=== PATIENT | male | born 1985 | race African-American/Black ===

== ENCOUNTER 2019-08-14 17:58 | Inpatient (IN) ==
[2019-08-14] MEDS ORDERED: TYLENOL PO ONE (18:36)
[2019-08-14] MEDS ORDERED: ZOFRAN IV ONE (18:36)
[2019-08-14] MEDS ORDERED: CLINDAMYCIN 600 MG/NS 600 MG/50 ML IVPB IV ONE (18:36)
[2019-08-14] MEDS ORDERED: MORPHINE IV ONE ×2 (18:36→20:48)
[2019-08-14] MEDS ORDERED: NS 500 ML IV ONE (18:36)
[2019-08-14] MEDS ORDERED: NS 1,000 ML IV ONE (18:38)
--- NOTE | 2019-08-14 18:40 | PROVIDER DOCUMENTATION ---
HPI-Rash/Wound/ReCheck - General Chief Complaint: Abscess Stated Complaint: ABSCESS Time Seen by Provider: 08/14/19 18:23 Source: patient Allergies/Adverse Reactions: Allergies Allergy/AdvReac Type Severity Reaction Status Date / Time No Known Allergies Allergy Verified 05/19/19 22:46 Home Medications: Home Medication List Medication Instructions Recorded Confirmed Last Taken Type Albuterol Sulfate [Proair Hfa] 8.5 gm INHALATION Q6HR PRN #1 09/19/18 03/13/19 03/13/19 Rx [email or web address] Dulaglutide [Trulicity] 1 dose SQ DIRECTED 03/13/19 03/13/19 03/13/19 History Fluticasone/Vilanterol [Breo 1 ea INH DIRECTED 03/13/19 03/13/19 03/13/19 History Ellipta 100-25 Mcg INH] Naproxen 500 mg PO BID PRN PRN #30 tab 05/20/19 Unknown Rx - History of Present Illness-Dermatology Nature of Presenting Problem: Patient is a 34 yom who presents with cellulitis to left buttocks x 4 days. States he developed fever 2 days ago. Hx of NIDDM. Was placed on Amoxicillin by urgent care. Denies any other complaints. Review of Systems - Adult - REVIEW OF SYSTEMS - ADULT Constitutional: reports: see HPI, fever Eyes: reports: no symptoms reported Ears, Nose, Mouth & Throat: reports: no symptoms reported Cardiovascular: reports: no symptoms reported Respiratory: reports: no symptoms reported Gastrointestinal: reports: no symptoms reported Genitourinary: reports: no symptoms reported Musculoskeletal: reports: no symptoms reported Integumentary: reports: see HPI Neurological: reports: no symptoms reported Psychiatric: reports: no symptoms reported Endocrine: reports: no symptoms reported Hematologic/Lymphatic: reports: no symptoms reported Allergic/Immunologic: reports: no symptoms reported All Other Systems: Reviewed and Negative Past History - Adult - PAST MEDICAL HISTORY-ADULT Review of Records: reports: Old Records Reviewed, Nursing Assessment Review, Medications Reviewed, Social history reviewed & non-contributory. Major Childhood Illnesses: reports: denies history Cardiovascular: reports: hyperlipidemia Respiratory: reports: asthma Gastrointestinal: reports: denies history Obstetrical/Gynecological: reports: denies history Genitourinary: reports: denies history Musculoskeletal: reports: denies history Neurological: reports: denies history Endocrine/Immune: reports: Diabetes Diabetes Type: Type 2 Other Conditions: reports: denies history - PRIOR SURGERIES/PROCEDURES Surgical/Procedure History: reports: none - IMMUNIZATION STATUS Childhood Immunizations: See Nurse Assessment Flu Vaccine: See Nurse Assessment - FAMILY HISTORY Family History: reviewed, not pertinent - SOCIAL HISTORY Smoking: non-smoker Physical Exam-General - PHYSICAL EXAM-ADULT Initial Vital Signs Reviewed: Yes - CONSTITUTIONAL General Appearance: alert, no apparent distress. negative: lethargic, slow to respond - EYES Eyes: PERRL/EOMI - HEAD, EARS, NOSE, MOUTH & THROAT HENMT: normocephalic/atraumatic - NECK Neck: full range of motion, supple, normal inspection - RESPIRATORY Respiratory: chest non-tender, lungs clear, normal breath sounds, no pleuratic chest pain, no respiratory distress, no accessory muscle use - CARDIOVASCULAR Cardiovascular: normal peripheral pulses, regular rate, rhythm, no gallop, no murmur, tachycardia - GENITOURINARY Rectal Exam: normal exam, other (large tender indurated region noted to left buttocks, perirectal region non-tender and non-indurated). negative: tenderness - MUSCULOSKELETAL Extremity: normal range of motion, non-tender, normal gait, normal inspection - SKIN Integumentary: normal color, warm/dry, other (see note under ). negative: cyanosis, diaphoresis, jaundice, mottled, pallor - NEUROLOGIC Neurologic: grossly normal, no motor/sensory deficits - PSYCHIATRIC Psych/Mental Status: normal mood/affect, normal thought content, normal thought process, oriented x 3 Progress - PLAN OF CARE/RESULTS Progress/Plan/Lab Results: Vital Signs - 8 hr 08/14/19 18:14 Temperature 102.6 F H Pulse Rate 123 H Respiratory Rate 18 Blood Pressure 113/70 O2 Sat by Pulse Oximetry 98 Laboratory Results - last 24 hr 08/14/19 08/14/19 08/14/19 19:15 19:15 19:15 WBC 16.90 H RBC 5.12 Hgb 14.9 Hct 43.7 MCV 85.4 MCH 29.1 MCHC 34.1 RDW Std Deviation 12.4 Plt Count 325 MPV 9.6 Immature Gran % (Auto) 0.5 Neut % (Auto) 80.9 H Lymph % (Auto) 7.3 L [place] % (Auto) 11.1 H Eos % (Auto) 0.1 Baso % (Auto) 0.1 Immature Gran # (Auto) 0.08 H Neut # (Auto) 13.70 H Lymph # (Auto) 1.23 [place] # (Auto) 1.87 H Eos # (Auto) 0.01 Baso # (Auto) 0.01 Sodium 133 L Potassium 4.6 Chloride 93 L Carbon Dioxide 23 L Anion Gap 17 BUN 14 Creatinine 1.0 Estimated GFR/1.73 m2 > 60 BUN/Creatinine Ratio 14 Glucose 331 H Calculated Osmolality 280 Calcium 9.6 Total Bilirubin 0.63 AST 9 L ALT 11 Alkaline Phosphatase 92 Total Protein 6.8 Albumin 3.8 Globulin 3.0 Albumin/Globulin Ratio 1.3 Plasma Lactate 1.4 Orders Category Date Time Status NEWS Score 2-4:Order NEWS Lactate Series NOW Care 08/14/19 18:16 Active BLOOD CULTURE [BLDCUL] Stat Lab 08/14/19 19:15 Results CBC WITH DIFF [HEME] Stat Lab 08/14/19 19:15 Completed COMPREHENSIVE METABOLIC PANEL [CHEM] Stat Lab 08/14/19 19:15 Completed LACTATE, PLASMA [CHEM] Lab 08/14/19 19:15 Completed LACTATE, PLASMA [CHEM] Lab 08/14/19 21:30 Uncollected LACTATE, PLASMA [CHEM] Lab 08/15/19 00:30 Uncollected 0.9% Sodium Chloride Inj [Ns] 1,000 ml Med 08/14/19 18:38 Discontinued IV 999 mls/hr 0.9% Sodium Chloride Inj [Ns] 500 ml Med 08/14/19 18:36 Discontinued IV 999 mls/hr Acetaminophen [Tylenol] Med 08/14/19 18:36 Discontinued 650 mg PO NOW ONE Clindamycin 600 mg/D5w Med 08/14/19 19:00 Discontinued 600 mg in 50 ml IV NOW Clindamycin 600 mg/Ns Med 08/14/19 18:36 Discontinued 600 mg in 50 ml IV NOW Insulin Human Regular [Humulin R] Med 08/14/19 20:47 Discontinued 8 unit IV NOW ONE Morphine Med 08/14/19 18:36 Discontinued 4 mg IV NOW ONE Morphine Med 08/14/19 20:48 Discontinued 4 mg IV NOW ONE Ondansetron [Zofran] Med 08/14/19 18:36 Discontinued 4 mg IV NOW ONE Result Diagrams: 08/14/19 19:15 08/14/19 19:15 - REASSESSMENT Reassessment #1 Time Reassessed: 20:51 Status: improving (Pain medicine effective, pt states it is wearing off and requests more. Pt in agreement with plan to admit.) - CONSULTS/PCP/HOSPITALIST Notification #1 *Consult/PCP/Hospitalist*: Dr. Thorpe Time Discussed: 20:51 Reason/Comments: admission- cellulitis Consult Disposition: Will see in ED, Admit Departure - Departure Date of Disposition Decision: 08/14/19 Time of Disposition Decision: 20:51 DIAGNOSIS: Cellulitis Qualifiers: Site of cellulitis: buttock Qualified Code(s): L03.317 - Cellulitis of buttock Disposition: ADMITTED INPATIENT 09 Certified Medical Emergency: Emergent Condition: Stable Referrals and Follow-Ups: Chris Garcia MD [Primary Care Provider] - - Critical Care Note This patient required my direct & personal management of CC.: No Attestation - Physician/ KEYON Attestation Patient care was provided by Advanced Practice Provider:: Yes Advanced Practice Provider:: Patricia Robertson Advanced Practice Provider documentation review:: The Mid-level provider documentation, treatment plan and medical decision making was reviewed by the physician who agrees with all treatment and medical decision making by the MLP. The physician spent face to face time with patient:: No Advanced Practice Provider documentation review:: Supervising physician onsite and consulted in the evaluation and care of this patient. The physician did not have a face to face encounter with the patient.
[2019-08-14] MEDS ORDERED: CLINDAMYCIN 600 MG/D5W 600 MG/50 ML IVPB IV ONE (19:00)
[2019-08-14 20:19] LABS: BASO# 0.01 X1000 (0.0-0.2); BASO% 0.1 % (0.0-0.8); EOS# 0.01 X1000 (0.0-0.7); EOS% 0.1 % (0.0-10.0); HEMATOCRIT 43.7 % (42.0-52.0); HEMOGLOBIN 14.9 g/dL (14.0-18.0); IMM GRAN# 0.08 X1000 (0.0-0.04); IMM GRAN% 0.5 % (0.0-0.5); LYMPH# 1.23 X1000 (1.2-3.4); LYMPH% 7.3 % (20.5-51.1); MCH 29.1 PG (27-31); MCHC 34.1 g/dL (33-37); MCV 85.4 FL (81-99); MONO# 1.87 X1000 (0.11-0.59); MONO% 11.1 % (1.7-9.3); MPV 9.6 FL (7.4-10.4); NEUT% 80.9 % (42.2-75.2); PLT 325 X1000 (130-400); RBC 5.12 XMIL (4.7-6.1); RDW 12.4 % (11.5-14.5)
[2019-08-14 20:40] LABS: AGAP 17; ALB/GLOB RATIO 1.3; ALBUMIN 3.8 g/dL (3.5-5.0); ALKALINE PHOSPHATASE 92 U/L (32-122); BUN 14 mg/dL (8-22); CALCIUM 9.6 mg/dL (8.8-10.2); CHLORIDE 93 mmol/L (98-107); COSMO 280; ESTIMATED GFR > 60; GLUCOSE 331 mg/dL (70-104); GOT 9 U/L (10-34); GPT 11 U/L (10-44); POTASSIUM 4.6 mmol/L (3.5-5.1); SODIUM 133 mmol/L (136-145); TCO2 23 mmol/L (25-35); TOTAL BILIRUBIN 0.63 mg/dL (0.20-1.00); TOTAL PROTEIN 6.8 g/dL (6.3-8.3)
[2019-08-14] MEDS ORDERED: HUMULIN R IV ONE (20:47)
[2019-08-14] MEDS ORDERED: VENTOLIN HFA INH PRN (21:51)
[2019-08-14] MEDS ORDERED: BREO ELLIPTA 100/25 MCG INH INH SCH (22:00)
[2019-08-14] MEDS ORDERED: VANCOMYCIN IV PER PHARMACY MISC SCH (22:00)
[2019-08-14] MEDS ORDERED: ROCEPHIN 1 GM in NS 50 ML IV SCH (22:00)
[2019-08-14 22:07] LABS: HEMOGLOBIN A1C 11.1 % (4.8-6.0)
[2019-08-14] MEDS ORDERED: ZOFRAN IV PRN (22:55)
[2019-08-14] MEDS ORDERED: NS 1,000 ML IV SCH (22:55)
[2019-08-14] MEDS ORDERED: VANCOMYCIN 2,000 MG in NS 500 ML IV ONE (23:00)
[2019-08-14] MEDS: DILAUDID IV PRN (23:15)
[2019-08-15] MEDS: HUMALOG SUBQ SCH ×3 (00:15→06:17)
[2019-08-15 01:42] LABS: CHOLESTEROL 287 mg/dL (0-200); HDL 40 mg/dL (35-55); LDL 226 mg/dL; TRIGLYCERIDES 107 mg/dL (39-160); VLDL 21 mg/dL
[2019-08-15] MEDS: DILAUDID IV PRN ×5 (02:57→19:20)
--- NOTE | 2019-08-15 05:41 | HISTORY AND PHYSICAL ---
CHIEF COMPLAINT: Abscess. HPI: This is a 34-year-old male with a right buttocks abscess x4 days. Started developing a fever 2 days ago. Was placed on amoxicillin by the Urgent Care, but has had increasing pain that was not relieved with ibuprofen. He has a past medical history of previous abscesses, diabetes mellitus, and hyperlipidemia, but says that he has not taken a cholesterol pill in several years. The abscess has grown in size. There is no fluctuance noted. It is indurated with erythema around it. Appears to be more cellulitis than abscess at this point. He will be admitted for further evaluation and treatment. PAST MEDICAL HISTORY: See HPI. PREVIOUS SURGICAL HISTORY: Denies. 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 Smokes 2 cigars a day. Smoking cessation was gone over with the patient, and he does not want to stop at this time. Occasional alcohol. No illicit drugs. FAMILY HISTORY: Mother has diabetes mellitus. ALLERGIES: NO KNOWN DRUG ALLERGIES. HOME MEDICATIONS: 1. Trulicity 1 dose daily as directed. 2. Metformin 500 mg daily. REVIEW OF SYSTEMS: A 14 point review of systems was conducted with the patient. Pertinent positives listed above in the HPI. All other systems reviewed and found to be negative. PHYSICAL EXAMINATION: VITAL SIGNS: Temperature 99.8, pulse 111, respirations 20, blood pressure 123/63, oxygen saturation 98% on room air. GENERAL: Pleasant 34-year-old male, lying on the ER stretcher. He is alert and oriented x3, in no acute distress. HEENT: Head is atraumatic, normocephalic. Pupils are equal, round, react to light. Extraocular eye movements intact. Sclera anicteric. Conjunctiva pink. Oral mucosa is moist. NECK: Supple. No JVD. No thyromegaly. Trachea is midline. No cervical lymphadenopathy. CARDIAC: S1, S2 appreciated. No murmurs, gallops or rubs. LUNGS: Clear to auscultation bilaterally. No rhonchi, wheeze or rales. Symmetric rise and fall of respirations. ABDOMEN: Soft, nondistended, nontender. Bowel sounds present all 4 quadrants, normoactive. No pulsatile mass or organomegaly. EXTREMITIES: No clubbing, cyanosis or edema, 2+ pedal pulses bilaterally. GENITOURINARY: No bladder distention. Patient voids. INTEGUMENTARY: Warm, dry and intact. Large area of induration on patient's right buttock surrounded with erythema. No fluctuance. NEUROLOGICAL: Alert and oriented x3. No focal motor deficits. Otherwise nonfocal examination. MUSCULOSKELETAL: All 4 extremities within normal limits, 5/5 strength upper and lower extremities equal bilaterally. LABORATORY DATA: WBC 16.90, hemoglobin 14.9, hematocrit 43.7, platelet count 325,000. Sodium 133, potassium 4.6, chloride 93, carbon dioxide 23, BUN 14, creatinine 1, glucose 331. ASSESSMENT: 1. Right buttocks cellulitis. 2. Tobacco use. 3. Diabetes mellitus with hyperglycemia. 4. History of hyperlipidemia, currently not treated, PLAN: Admit patient to the medical floor. Will give him Rocephin and vancomycin, morphine as needed for pain. Will give normal saline for hydration, fingerstick blood sugars q.4h. with sliding scale insulin. Check hemoglobin A1c. Check a lipid profile. Further recommendations per patient clinical course. Dictated by SHWETA Wade for Mario Woody MD cc: SHWETA Wade MD
[2019-08-15] MEDS: TYLENOL PO PRN ×2 (06:54→16:00)
[2019-08-15] MEDS ORDERED: ZOSYN 3.375 GM in NS 50 ML IV SCH (07:00)
[2019-08-15 07:24] LABS: BASO# 0.02 X1000 (0.0-0.2); BASO% 0.1 % (0.0-0.8); EOS# 0.02 X1000 (0.0-0.7); EOS% 0.1 % (0.0-10.0); HEMATOCRIT 39.9 % (42.0-52.0); HEMOGLOBIN 13.3 g/dL (14.0-18.0); IMM GRAN# 0.08 X1000 (0.0-0.04); IMM GRAN% 0.5 % (0.0-0.5); LYMPH# 1.95 X1000 (1.2-3.4); LYMPH% 11.4 % (20.5-51.1); MCH 28.9 PG (27-31); MCHC 33.3 g/dL (33-37); MCV 86.6 FL (81-99); MONO# 1.98 X1000 (0.11-0.59); MONO% 11.5 % (1.7-9.3); MPV 9.2 FL (7.4-10.4); NEUT# 13.13 X1000 (1.4-6.5); NEUT% 76.4 % (42.2-75.2); PLT 310 X1000 (130-400); RBC 4.61 XMIL (4.7-6.1); RDW 12.3 % (11.5-14.5); WBC 17.18 X1000 (4.8-10.8)
[2019-08-15 07:58] LABS: AGAP 12; BUN 9 mg/dL (8-22); CHLORIDE 93 mmol/L (98-107); COSMO 263; CREATININE 0.9 mg/dL (0.7-1.2); ESTIMATED GFR > 60; GLUCOSE 270 mg/dL (70-104); POTASSIUM 3.9 mmol/L (3.5-5.1); SODIUM 127 mmol/L (136-145); TCO2 22 mmol/L (25-35)
[2019-08-15] MEDS ORDERED: INSULIN PEN NEEDLES ONE (08:12)
[2019-08-15] MEDS: LEVEMIR SUBQ SCH (10:15)
[2019-08-15] MEDS: VANCOMYCIN 2,000 MG in NS 500 ML IV SCH ×2 (10:24→23:29)
[2019-08-15] MEDS ORDERED: NS 1,000 ML IV SCH (11:23)
--- NOTE | 2019-08-15 14:51 | GENERAL SURGERY CONSULTATION ---
DATE: 08/15/2019 REQUESTING PROVIDER: Hospitalist. REASON FOR CONSULTATION: Consult regarding right gluteal cellulitis versus abscess. HISTORY OF PRESENT ILLNESS: A 34-year-old, -[place] male who developed pain in his right buttocks for 4 days and started running a fever. He was initially getting oxacillin by emergent care but it did not get any better so he came over here. He has been admitted by the hospitalist and started on IV antibiotics. I was asked to weigh an opinion. The patient is reporting pain in the area but no active drainage. PAST MEDICAL HISTORY: Includes diabetes mellitus, hyperlipidemia, previous abscess. PAST SURGICAL HISTORY: None. SOCIAL HISTORY: Current smoker. FAMILY HISTORY: Positive for diabetes. ALLERGIES: None. HOME MEDICATIONS: Trulicity and metformin. REVIEW OF SYSTEMS: A full 14 systems were reviewed and negative except as specified in the HPI. PHYSICAL EXAMINATION: Vital Signs: Patient is currently with a temperature of 101.2 degrees, pulse 114, blood pressure 128/73. General Examination: No acute distress. Resting comfortably. -[place]ian male, looks stated age. HEENT: Normocephalic, atraumatic. Pupils equal, round, reactive to light. Mucous membranes moist. Oropharynx benign. Neck: Supple. Trachea midline. Cardiovascular: Regular rate and rhythm. Lungs: Grossly clear. Abdomen: Soft, nontender, nondistended. Extremities: Moves all extremities. Neurologic: Grossly intact. Skin: In the right gluteal area, there is an area of induration. Limited exam secondary to tenderness. I did not feel any actual fluctuance but it is a difficult exam. Some warmth to the touch. No active drainage. Vascular: All extremities perfused. Neurologic: Grossly intact. LABORATORY DATA: White blood count 17, hematocrit 39, platelet count 310,000. Sodium is 127, chloride is 93, bicarb is 22, creatinine 0.9. Remainder of labs reviewed. CT scan currently pending. ASSESSMENT AND PLAN: A 34-year-old gentleman with right gluteal cellulitis. Cellulitis. At this time, I agree with CT scan. His exam is somewhat difficult. It feels mostly indurated but given the fact that he has a tachycardia and a significant leukocytosis, and a fever, I agree with getting a CT scan to make sure there is not a deeper abscess that is difficult to feel on clinical examination. I agree with the antibiotics. We will follow up the CT scan and make further recommendations. cc: Francis Gao MD MTDD
--- NOTE | 2019-08-15 15:52 | Diag Imaging Result Doc PS360 ---
EXAM: CT ABD/PELVIS W/IV CONT ONLY INDICATION: gluteal abscess TECHNIQUE: This exam was performed using automated exposure control, adjustment of mA or kV according to patient size, and/or use of iterative reconstruction technique. Note that the patient was scanned in a prone position as he was unable to lie supine due to pain. COMPARISON: None. FINDINGS: The liver, gallbladder, spleen, pancreas, adrenal glands, kidneys, and urinary bladder are essentially unremarkable. The appendix is normal. There is no evidence of focal bowel wall thickening or bowel obstruction. The remainder of the GI tract is unremarkable. There is a complex fluid collection containing internal gas in the subcutaneous fat overlying the gluteal musculature predominantly on the right but it also extends slightly to the left of the gluteal cleft. There is suggestion of subtle enhancement at its periphery. As of yet, it is poorly defined. This is consistent with an early abscess. It measures approximately 5.7 x 3.9 cm axially and up to 8.9 cm craniocaudally. There is extensive soft tissue edema in the gluteal fat on the right surrounding the collection indicating cellulitis. In the left gluteal region on image 206 of series 3, there is a small 1.3 cm hypodense nodule in the superficial soft tissues abutting the skin surface measuring 1.3 cm most compatible with a sebaceous cyst. No intrapelvic abscess is appreciated. IMPRESSION: Early gluteal abscess with surrounding cellulitis mainly on the right as detailed above. Electronically signed by Mika Rosa 08/15/2019 3:50 PM
[2019-08-15] MEDS: HUMULIN R SUBQ SCH ×3 (16:41→21:35)
[2019-08-15] MEDS: NS 1,000 ML IV SCH (16:42)
--- NOTE | 2019-08-15 16:52 | PROGRESS NOTE ---
DATE: 08/15/2019 SUBJECTIVE: The patient has been febrile all day. He complains of pain on his right buttock. OBJECTIVE: T-max 102.8 degrees, blood pressure 113/63, heart rate 119 respirations 18, O2 saturation 95% on room air.General: This is a young male lying in bed in no acute distress. Heart: S1, S2 normal. Tachycardic. Lungs: Equal air entry bilaterally no wheezing no rales. Abdomen: Positive bowel sounds. Soft, nontender, nondistended. Extremities: No edema, no cyanosis. Buttocks: There is an indurated large swelling on the right buttock, warm to touch. No discharge noted. Neurologic: The patient is alert and oriented x3. LABS: White blood cell count 17, hemoglobin 13, hematocrit 39, platelets 310,000. Sodium 127, potassium 3.9, chloride 93, CO2 22, BUN 9, creatinine 0.9, glucose 225, calcium 9. ASSESSMENT AND PLAN: 1. Sepsis likely secondary to right buttock cellulitis with possible abscess. General Surgery has seen the patient. We are waiting on the results of the CT of the abdomen and pelvis. In the meantime the patient is on IV fluids and broad-spectrum antibiotics. We will continue to monitor closely for improvement. 2. Right buttock cellulitis with possible abscess. Continue with broad-spectrum antibiotics. General Surgery has seen the patient. We will await further recommendations after the imaging is available for review. 3. Uncontrolled insulin-dependent diabetes mellitus. The patient has been started on Levemir 30 units subcutaneous daily plus sliding scale insulin. 4. Deep vein thrombosis prophylaxis. The patient will be started on Lovenox. cc: Sulma Posadas MD
[2019-08-15] MEDS ORDERED: LANTUS INSULIN SUBQ SCH (21:00)
[2019-08-15] MEDS: MERREM 1 GM in NS 50 ML IV SCH (21:35)
[2019-08-15] MEDS: LOVENOX SUBQ SCH (21:35)
[2019-08-15] MEDS: NORCO-7.5 PO PRN (21:35)
[2019-08-16] MEDS: DILAUDID IV PRN ×6 (01:22→22:19)
[2019-08-16] MEDS: HUMULIN R SUBQ SCH ×6 (01:23→21:44)
[2019-08-16] MEDS: NS 1,000 ML IV SCH ×4 (04:42→16:07)
[2019-08-16] MEDS: MERREM 1 GM in NS 50 ML IV SCH ×3 (04:43→21:42)
[2019-08-16] MEDS: TYLENOL PO PRN (05:19)
[2019-08-16 06:43] LABS: INR 1.2; PROTIME 15.4 Seconds (11.0-16.0)
[2019-08-16 06:44] LABS: PTT 34.8 Seconds (22.3-41.8)
[2019-08-16] MEDS: PRILOSEC PO SCH ×2 (06:54→16:00)
--- NOTE | 2019-08-16 07:04 | Diag Imaging Result Doc PS360 ---
EXAM: CHEST-1 VIEW HISTORY: NEWS bundle TECHNIQUE: Single view COMPARISON: 05/19/2019 FINDINGS: The lungs are well expanded. The heart is not enlarged. The vessels are not distended. There are no infiltrates. No effusion identified. IMPRESSION: Negative exam. Electronically signed by Bari Borges 08/16/2019 7:02 AM
[2019-08-16 07:42] LABS: ALB/GLOB RATIO 1.1; ALBUMIN 2.9 g/dL (3.5-5.0); ALKALINE PHOSPHATASE 86 U/L (32-122); BUN 7 mg/dL (8-22); CALCIUM 8.5 mg/dL (8.8-10.2); CREATININE 0.9 mg/dL (0.7-1.2); ESTIMATED GFR > 60; GLUCOSE 184 mg/dL (70-104); GOT 17 U/L (10-34); GPT 15 U/L (10-44); TCO2 20 mmol/L (25-35); TOTAL BILIRUBIN 0.94 mg/dL (0.20-1.00); TOTAL PROTEIN 5.5 g/dL (6.3-8.3)
[2019-08-16 07:43] LABS: CK PROFILE 426 U/L (24-204)
[2019-08-16] MEDS ORDERED: DIPRIVAN 1% ONE (07:44)
[2019-08-16] MEDS ORDERED: XYLOCAINE-MPF 2% ONE (07:44)
[2019-08-16] MEDS ORDERED: VERSED ONE (07:47)
[2019-08-16 07:55] LABS: AGAP 12; BUN 7 mg/dL (8-22); CALCIUM 8.7 mg/dL (8.8-10.2); CHLORIDE 99 mmol/L (98-107); COSMO 271; CREATININE 0.9 mg/dL (0.7-1.2); ESTIMATED GFR > 60; GLUCOSE 187 mg/dL (70-104); POTASSIUM 3.4 mmol/L (3.5-5.1); SODIUM 134 mmol/L (136-145); TCO2 23 mmol/L (25-35)
[2019-08-16 08:01] LABS: CHLORIDE 99 mmol/L (98-107); POTASSIUM 3.6 mmol/L (3.5-5.1); SODIUM 134 mmol/L (136-145)
[2019-08-16 08:03] LABS: CK INDEX 0.4 (0.0-2.5)
[2019-08-16 08:09] LABS: AGAP 15
[2019-08-16] MEDS ORDERED: FENTANYL ONE (08:09)
[2019-08-16 08:11] LABS: COSMO 271
[2019-08-16] MEDS ORDERED: ZOFRAN ONE (08:21)
[2019-08-16] MEDS: DILAUDID ONE ×2 (08:54→09:00)
[2019-08-16 08:58] LABS: HEMATOCRIT 37.7 % (42.0-52.0); HEMOGLOBIN 12.7 g/dL (14.0-18.0); LYMPH% 10.4 % (20.5-51.1); MCH 29.3 PG (27-31); MCHC 33.7 g/dL (33-37); MCV 86.9 FL (81-99); MPV 9.6 FL (7.4-10.4); NEUT% 73.7 % (42.2-75.2); PLT 305 X1000 (130-400); RBC 4.34 XMIL (4.7-6.1); RDW 12.4 % (11.5-14.5); WBC 20.63 X1000 (4.8-10.8)
[2019-08-16 08:59] LABS: BASO# 0.03 X1000 (0.0-0.2); BASO% 0.1 % (0.0-0.8); EOS# 0.02 X1000 (0.0-0.7); EOS% 0.1 % (0.0-10.0); IMM GRAN% 0.5 % (0.0-0.5); LYMPH# 2.15 X1000 (1.2-3.4); MONO# 3.13 X1000 (0.11-0.59); MONO% 15.2 % (1.7-9.3)
--- NOTE | 2019-08-16 10:12 | GENERAL SURGERY PROGRESS NOTE ---
DATE: 08/16/2019 SUBJECTIVE: Patient is doing okay. OBJECTIVE: Vital Signs: Patient is tachycardic to the 110s and temperature is 102.8 degrees. Remainder of vital signs stable. General: In no acute distress. Resting comfortably. Cardiovascular: Regular rate and rhythm. Lungs: Grossly clear. Abdomen: Soft, nontender. Gluteal area essentially unchanged. ASSESSMENT AND PLAN: A 34-year-old male with gluteal abscess. PLAN: Gluteal abscess. At this time I suspect this is the reason behind his tachycardia and his fever. The CT scan showed an abscess. Discussed with him the risks, benefits, and alternatives of drainage, risks including, but not limited to, bleeding, damage to other structures. We will plan on drainage today in the operating room. cc: Francis Gao MD
[2019-08-16] MEDS: LEVEMIR SUBQ SCH ×2 (12:04→14:01)
[2019-08-16] MEDS: VANCOMYCIN 2,000 MG in NS 500 ML IV SCH (14:00)
[2019-08-16] MEDS: NORCO-7.5 PO PRN ×2 (14:48→21:43)
--- NOTE | 2019-08-16 15:31 | OPERATIVE NOTE ---
PROCEDURE DATE: 08/16/2019 PREOP DIAGNOSIS: Gluteal abscess. POSTOP DIAGNOSIS: Gluteal abscess. PROCEDURE: Incision and drainage of gluteal abscess. SURGEON: Francis Gao MD. CLINICAL ALLERGIST: None. ANESTHESIA: General endotracheal. OPERATIVE FINDINGS: Significant amount purulence encountered which sent for culture. COMPLICATIONS: None at the time this dictation. ESTIMATED BLOOD LOSS: 10 mL. SPECIMEN REMOVED: Culture. BRIEF HISTORY: 34-year-old gentleman with gluteal cellulitis. CT scan confirmed an abscess, felt he would benefit from drainage. He is also tachycardic and febrile, felt that he needed to have this drained the operating room. The risks, benefits, alternatives were discussed. All questions answered. DESCRIPTION OF PROCEDURE: After informed consent was obtained patient brought to the operative theatre, transferred operating table supine position. General endotracheal anesthesia was then performed without complication. A formal time-out was then performed confirming patient, date, procedure, all in agreement. That time attention to the patient's perineum gluteal area, he was placed in candy canes, gluteal area was prepped and draped, while we were prepping it started to spontaneously start to drain. We prepped and draped this area in a sterile fashion. After the time-out we made a cruciate incision over the area that was draining, encountered significant amount of purulence which was drained. We then cultured it. We then irrigated out the wound with both normal saline and Vashe. We then placed packing into the wound with a Kerlix roll that was soaked in Vashe and placed a sterile dressing. The patient tolerated procedure well, was transferred back to recovery room. cc: Francis Gao MD
[2019-08-16 15:49] LABS: URINE SOURCE CLEAN CATCH
[2019-08-16 15:53] LABS: BILIRUBIN URINE NEGATIVE (NEGATIVE); BLOOD URINE NEGATIVE (NEGATIVE); COLOR YELLOW; GLUCOSE URINE 300 mg/dL (NEGATIVE); KETONE URINE 20 mg/dL (NEGATIVE); LEUKOCYTES URINE NEGATIVE (NEGATIVE); NITRITE URINE NEGATIVE (NEGATIVE); PROTEIN URINE TRACE mg/dL (NEGATIVE); SP GRAVITY URINE 1.021; TURBIDITY URINE CLEAR (CLEAR); UROBILINOGEN URINE 3 mg/dL (NORMAL)
[2019-08-16 16:24] LABS: UR EPITHELIAL CELLS <10 /HPF (<10); URINE BACTERIA NEGATIVE /HPF; URINE RBC <10 /HPF (<10); URINE WBC <10 /HPF (<10)
[2019-08-16 16:38] LABS: URINE CASTS GRANULAR PRESENT; URINE CRYSTALS NONE SEEN; URINE YEAST NONE SEEN
--- NOTE | 2019-08-16 20:41 | PROGRESS NOTE ---
DATE: 08/16/2019 SUBJECTIVE: The patient is resting comfortably. He had surgery earlier today. OBJECTIVE: Vital Signs: Temperature 98.4 degrees, blood pressure 114/69, heart rate 114, respirations 18, O2 saturations 98% on room air. General: This is a young male lying in bed in no acute distress. Heart: S1, S2 normal. Tachycardic. Lungs: Clear to auscultation bilaterally. Abdomen: Positive bowel sounds. Soft, nontender, nondistended. Extremities: No edema, no cyanosis. No calf tenderness. Neuro: The patient is alert and oriented x3. LABS: White blood cell count 20, hemoglobin 12, hematocrit 37, platelets 305,000. Sodium 134, potassium 3.6, chloride 99, CO2 20, BUN 7, creatinine 0.9, glucose 184. ASSESSMENT AND PLAN: 1. Sepsis secondary to gluteal abscess status post incision and drainage. Will continue with broad-spectrum antibiotics. Cultures are currently pending. Management as per the general surgeon. 2. Poorly controlled insulin-dependent diabetes mellitus. We will continue on the current insulin regimen. 3. Gastrointestinal prophylaxis. Continue on Prilosec. 4. Deep vein thrombosis prophylaxis. Continue on Lovenox. cc: Sulma Posadas MD
[2019-08-16] MEDS: PERIDEX MT SCH (21:43)
[2019-08-16] MEDS: LOVENOX SUBQ SCH ×2 (21:44→21:46)
[2019-08-17] MEDS: VANCOMYCIN 2,000 MG in NS 500 ML IV SCH ×3 (01:03→22:21)
[2019-08-17] MEDS: NS 1,000 ML IV SCH (01:04)
[2019-08-17] MEDS: HUMULIN R SUBQ SCH ×6 (01:05→22:22)
[2019-08-17] MEDS: PRILOSEC PO SCH ×2 (05:01→06:19)
[2019-08-17] MEDS: MERREM 1 GM in NS 50 ML IV SCH ×3 (05:01→16:57)
[2019-08-17] MEDS: NORCO-7.5 PO PRN ×3 (05:02→15:49)
[2019-08-17 07:21] LABS: BASO# 0.02 X1000 (0.0-0.2); BASO% 0.1 % (0.0-0.8); EOS% 0.6 % (0.0-10.0); HEMATOCRIT 35.1 % (42.0-52.0); HEMOGLOBIN 11.8 g/dL (14.0-18.0); IMM GRAN# 0.14 X1000 (0.0-0.04); IMM GRAN% 0.8 % (0.0-0.5); LYMPH# 1.41 X1000 (1.2-3.4); MCH 29.3 PG (27-31); MCHC 33.6 g/dL (33-37); MCV 87.1 FL (81-99); MONO# 1.69 X1000 (0.11-0.59); MONO% 9.6 % (1.7-9.3); MPV 8.7 FL (7.4-10.4); NEUT# 14.22 X1000 (1.4-6.5); NEUT% 80.9 % (42.2-75.2); PLT 306 X1000 (130-400); RBC 4.03 XMIL (4.7-6.1); RDW 12.7 % (11.5-14.5); WBC 17.58 X1000 (4.8-10.8)
[2019-08-17 07:38] LABS: AGAP 13; BUN 8 mg/dL (8-22); CALCIUM 8.6 mg/dL (8.8-10.2); CHLORIDE 98 mmol/L (98-107); COSMO 272; CREATININE 0.8 mg/dL (0.7-1.2); ESTIMATED GFR > 60; GLUCOSE 203 mg/dL (70-104); POTASSIUM 3.7 mmol/L (3.5-5.1); SODIUM 134 mmol/L (136-145); TCO2 23 mmol/L (25-35)
[2019-08-17] MEDS: PERIDEX MT SCH ×2 (08:33→22:20)
[2019-08-17] MEDS: DILAUDID IV PRN ×3 (08:33→16:56)
[2019-08-17] MEDS: LEVEMIR SUBQ SCH ×2 (08:34→22:21)
--- NOTE | 2019-08-17 12:44 | GENERAL SURGERY PROGRESS NOTE ---
DATE: 08/17/2019 Postoperative day 1 after drainage of a perirectal abscess. He is afebrile today. He says he feels better [place] [id number]. Today, we removed his packing. He continues on Merrem and vancomycin. cc: Aayush Puentes MD
--- NOTE | 2019-08-17 14:46 | PROGRESS NOTE ---
DATE: 08/17/2019 SUBJECTIVE: The patient is feeling much better. No acute events overnight. He has been afebrile. OBJECTIVE: Vital Signs: Temperature 98.1 degrees, blood pressure 115/63, heart rate 82, respirations 18, O2 saturation 97% on room air. General: This is a young male lying in bed in no acute distress. Heart: S1, S2 normal. Regular rate and rhythm. Lungs: Equal air entry bilaterally. No wheezing. No rales. No rhonchi. Abdomen: Positive bowel sounds. Soft, nontender, nondistended. Extremities: No edema. No cyanosis. Neurologic: The patient is alert and oriented x3. LABS: White blood cell count 17, hemoglobin 11, hematocrit 35, platelets 306,000. Sodium 134, potassium 3.7, chloride 98, CO2 23, BUN 8, creatinine 0.8, glucose 203. ASSESSMENT AND PLAN: 1. Sepsis secondary to a right gluteal abscess status post incision and drainage. The patient is improving. His white blood cell count is slowly coming down. He is no longer febrile. We will await the culture results. Continue with wound care as directed by the general surgery. 2. Poorly controlled insulin-dependent diabetes mellitus. We will increase the long-acting insulin dosage. Continue with sliding scale insulin. 3. Gastrointestinal prophylaxis. Continue on Prilosec. 4. Deep vein thrombosis prophylaxis. Continue on Lovenox. cc: Sulma Posadas MD
[2019-08-17] MEDS: LOVENOX SUBQ SCH ×2 (22:20→22:28)
[2019-08-18] MEDS: HUMULIN R SUBQ SCH ×6 (01:54→22:31)
[2019-08-18] MEDS: PRILOSEC PO SCH ×2 (05:34→08:26)
[2019-08-18] MEDS: MERREM 1 GM in NS 50 ML IV SCH ×3 (05:34→22:28)
[2019-08-18 07:03] LABS: BASO# 0.02 X1000 (0.0-0.2); BASO% 0.1 % (0.0-0.8); EOS# 0.13 X1000 (0.0-0.7); EOS% 0.9 % (0.0-10.0); HEMATOCRIT 36.4 % (42.0-52.0); IMM GRAN# 0.05 X1000 (0.0-0.04); IMM GRAN% 0.4 % (0.0-0.5); LYMPH# 2.04 X1000 (1.2-3.4); LYMPH% 14.5 % (20.5-51.1); MCH 28.8 PG (27-31); MCV 87.5 FL (81-99); MONO# 1.06 X1000 (0.11-0.59); MONO% 7.5 % (1.7-9.3); NEUT# 10.75 X1000 (1.4-6.5); NEUT% 76.6 % (42.2-75.2); PLT 328 X1000 (130-400); RBC 4.16 XMIL (4.7-6.1); RDW 12.8 % (11.5-14.5); WBC 14.05 X1000 (4.8-10.8)
[2019-08-18 07:29] LABS: AGAP 13; BUN 7 mg/dL (8-22); CALCIUM 8.7 mg/dL (8.8-10.2); CHLORIDE 101 mmol/L (98-107); COSMO 274; CREATININE 0.8 mg/dL (0.7-1.2); ESTIMATED GFR > 60; GLUCOSE 108 mg/dL (70-104); POTASSIUM 3.4 mmol/L (3.5-5.1); SODIUM 138 mmol/L (136-145); TCO2 24 mmol/L (25-35)
[2019-08-18] MEDS ORDERED: KLOR-CON PO ONE (07:30)
--- NOTE | 2019-08-18 08:38 | GENERAL SURGERY PROGRESS NOTE ---
DATE: 08/18/2019 Mr. Rendon is afebrile. His T-max was 99.4 degrees. He has had some drainage from his rectum. His white count is down to 14,000. He has gram positive rods and gram-positive cocci in his wound culture. He is covered broad-spectrum with antibiotics. Hopefully, he will be able to go home soon on p.o. antibiotics. cc: Aayush Puentes MD
[2019-08-18] MEDS: PERIDEX MT SCH ×2 (08:54→22:28)
[2019-08-18] MEDS: DILAUDID IV PRN ×2 (08:54→16:53)
[2019-08-18] MEDS: LEVEMIR SUBQ SCH ×3 (08:55→22:29)
[2019-08-18] MEDS: NORCO-7.5 PO PRN ×2 (11:14→19:43)
[2019-08-18] MEDS: VANCOMYCIN 2,000 MG in NS 500 ML IV SCH ×2 (12:39→23:11)
--- NOTE | 2019-08-18 16:48 | PROGRESS NOTE ---
DATE: 08/18/2019 SUBJECTIVE: The patient states that he feels okay today. He has not been eating because he does not like the food. OBJECTIVE: Vital Signs: Temperature 97.8 degrees, blood pressure 154/74, heart rate 76, respirations 16, O2 saturation is 100% on room air. General: This is a young male lying in bed, in no acute distress. Heart: S1, S2 normal. Regular rate and rhythm. Lungs: Equal air entry bilaterally. No wheezing. No rales. No rhonchi. Abdomen: Positive bowel sounds. Soft, nontender, nondistended. Extremities: No edema, no cyanosis, no calf tenderness. Neurologic: The patient is alert and oriented x3. Labs: White blood cell count 14, hemoglobin 12, hematocrit 36, platelets 328,000. Sodium 138, potassium 3.4, chloride 101, CO2 of 24, BUN 7, creatinine 0.8, glucose 108, magnesium 1.9. ASSESSMENT AND PLAN: 1. Sepsis secondary to a right gluteal abscess. Resolved. 2. Right gluteal abscess status post incision and drainage. So far, the cultures are growing gram-positive cocci. We will await the final identification of the organism. Continue with antibiotic therapy. Further management as per the general surgeon. 3. Insulin-dependent diabetes mellitus type 2. Improved. Continue on long- acting insulin and sliding scale insulin. 4. Gastrointestinal prophylaxis. Continue on Prilosec. 5. Anemia. Stable. 6. Hypokalemia. We will replace the patient's potassium. 7. Deep vein thrombosis prophylaxis. Continue on Lovenox. cc: Sulma Posadas MD [facility]
[2019-08-18] MEDS: MIRALAX PO SCH (22:30)
[2019-08-18] MEDS: LOVENOX SUBQ SCH (22:31)
[2019-08-18] MEDS: COLACE PO SCH (22:32)
[2019-08-19] MEDS: HUMULIN R SUBQ SCH ×6 (02:47→22:22)
--- NOTE | 2019-08-19 06:19 | GENERAL SURGERY PROGRESS NOTE ---
DATE: 08/19/2019 SUBJECTIVE: Patient seems to be doing okay. Still a little bit sore, but the pain is improved. He has got a little bit of drainage from the incision and drainage area. OBJECTIVE: Vital Signs: Patient is currently afebrile, and he has been afebrile for over 24 hours. His vital signs are stable. No tachycardia. General: No acute distress. Cardiovascular: Regular rate and rhythm. Lungs: Grossly clear. Abdomen: Soft, nontender, and nondistended. Gluteal region still with some induration, and some mild drainage noted on the dressing. Decreased area of induration overall. LABORATORY: Reviewed from yesterday. White blood cell count is trending down, but still slightly elevated. Microbiology shows gram-positive cocci, but no speciation. ASSESSMENT AND PLAN: A 34-year-old gentleman status post incision and drainage of gluteal abscess. Status post incision and drainage of gluteal abscess. At this time, I agree with continued antibiotics until we get speciation then we can tailor it to p.o. antibiotic. At this point, I think he is getting close to being able to be discharged home. Follow up with me in 1 to 2 weeks. We just need to get this culture information back. cc: Francis Gao MD
[2019-08-19 06:56] LABS: BASO# 0.03 X1000 (0.0-0.2); BASO% 0.3 % (0.0-0.8); EOS# 0.19 X1000 (0.0-0.7); EOS% 1.6 % (0.0-10.0); HEMATOCRIT 34.5 % (42.0-52.0); HEMOGLOBIN 11.5 g/dL (14.0-18.0); IMM GRAN# 0.04 X1000 (0.0-0.04); IMM GRAN% 0.3 % (0.0-0.5); LYMPH# 2.25 X1000 (1.2-3.4); LYMPH% 19.1 % (20.5-51.1); MCH 29.2 PG (27-31); MCHC 33.3 g/dL (33-37); MCV 87.6 FL (81-99); MONO# 1.33 X1000 (0.11-0.59); MONO% 11.3 % (1.7-9.3); MPV 9.3 FL (7.4-10.4); NEUT# 7.93 X1000 (1.4-6.5); NEUT% 67.4 % (42.2-75.2); PLT 375 X1000 (130-400); RBC 3.94 XMIL (4.7-6.1); RDW 12.7 % (11.5-14.5); WBC 11.77 X1000 (4.8-10.8)
[2019-08-19 07:07] LABS: AGAP 12; BUN 5 mg/dL (8-22); CALCIUM 8.6 mg/dL (8.8-10.2); CHLORIDE 103 mmol/L (98-107); COSMO 276; CREATININE 0.8 mg/dL (0.7-1.2); ESTIMATED GFR > 60; GLUCOSE 82 mg/dL (70-104); POTASSIUM 3.2 mmol/L (3.5-5.1); SODIUM 140 mmol/L (136-145); TCO2 25 mmol/L (25-35)
[2019-08-19] MEDS ORDERED: KLOR-CON PO ONE (07:20)
[2019-08-19] MEDS: PRILOSEC PO SCH (07:23)
[2019-08-19] MEDS: PERIDEX MT SCH ×2 (08:37→22:21)
[2019-08-19] MEDS: COLACE PO SCH ×2 (08:37→22:21)
[2019-08-19] MEDS: MIRALAX PO SCH ×3 (08:37→22:20)
[2019-08-19] MEDS: MERREM 1 GM in NS 50 ML IV SCH ×3 (08:38→16:55)
[2019-08-19] MEDS: LEVEMIR SUBQ SCH (08:40)
[2019-08-19] MEDS: TYLENOL PO PRN (08:45)
[2019-08-19] MEDS: VANCOMYCIN 2,000 MG in NS 500 ML IV SCH (10:55)
--- NOTE | 2019-08-19 12:45 | PROGRESS NOTE ---
DATE: 01/19/2020 SUBJECTIVE: The patient is doing well. He is ambulating without any difficulty. OBJECTIVE: Vital Signs: Temperature 99.3 degrees, blood pressure 120/73, heart rate 80, respirations 16, O2 saturation 96% on room air. General: This is a young male lying in bed in no acute distress. Heart: S1, S2 normal. Regular rate and rhythm. Lungs: Clear to auscultation bilaterally. No wheezing. No rales. No rhonchi. Abdomen: Positive bowel sounds. Soft, nontender, nondistended. Extremities: No edema, no cyanosis. Neurologic: The patient is alert and oriented x3. LABS: White blood cell count 11, hemoglobin 11, hematocrit 34, platelets 375,000. Sodium 140, potassium 3.2, chloride 103, CO2 25, BUN 5, creatinine 0.8, glucose 78. ASSESSMENT AND PLAN: 1. Sepsis secondary to right gluteal abscess. Resolved. 2. Right gluteal abscess status post incision and drainage. The wound cultures are currently pending. So far the cultures indicate gram-positive cocci. Continue with antibiotics pending the identification of the organism. 3. Insulin-dependent diabetes mellitus. The patient's blood sugars are improved. However, he is not eating very much. We will adjust the insulin regimen. 4. Anemia. Stable. 5. Leukocytosis. Slowly improving. 6. Hypokalemia. We will replace the patient's potassium. 7. Deep vein thrombosis prophylaxis. Continue on Lovenox. cc: Sulma Posadas MD [facility]
[2019-08-19] MEDS: NORCO-7.5 PO PRN (18:41)
[2019-08-19] MEDS: LOVENOX SUBQ SCH (22:22)
[2019-08-20] MEDS: NORCO-7.5 PO PRN ×2 (02:19→20:01)
[2019-08-20] MEDS: HUMULIN R SUBQ SCH ×5 (02:21→17:27)
[2019-08-20] MEDS: MERREM 1 GM in NS 50 ML IV SCH ×2 (02:33→13:30)
[2019-08-20] MEDS: PRILOSEC PO SCH (07:00)
--- NOTE | 2019-08-20 07:08 | GENERAL SURGERY PROGRESS NOTE ---
DATE: 08/20/2019 SUBJECTIVE: The patient is doing okay. No major issues. OBJECTIVE: Vital Signs: The patient is currently afebrile. His vital signs are stable. General: On exam, in no acute distress. Cardiovascular: Regular rate and rhythm. Lungs: Grossly clear. Abdomen: Soft, nontender. Skin/Extremities: Gluteal region improving. LABORATORY DATA: Microbiology wound culture shows Streptococcus anginosus that is essentially pansensitive. We could potentially switch from the Levaquin to clindamycin. ASSESSMENT AND PLAN: A 34-year-old gentleman with gluteal abscess, status post drainage. Status post incision and drainage: At this time, I suspect we can switch him over to clindamycin from Levaquin. We will defer to the hospitalist, but at this time I think he is probably safe to be able to be discharged home and follow up with me in 1 to 2 weeks. cc: Francis Gao MD
[2019-08-20 07:13] LABS: BASO# 0.04 X1000 (0.0-0.2); BASO% 0.4 % (0.0-0.8); EOS# 0.23 X1000 (0.0-0.7); EOS% 2.2 % (0.0-10.0); HEMATOCRIT 35.9 % (42.0-52.0); HEMOGLOBIN 11.8 g/dL (14.0-18.0); IMM GRAN# 0.03 X1000 (0.0-0.04); IMM GRAN% 0.3 % (0.0-0.5); LYMPH# 2.33 X1000 (1.2-3.4); MCHC 32.9 g/dL (33-37); MCV 88.2 FL (81-99); MONO# 1.21 X1000 (0.11-0.59); MONO% 11.4 % (1.7-9.3); MPV 9.3 FL (7.4-10.4); NEUT# 6.73 X1000 (1.4-6.5); NEUT% 63.7 % (42.2-75.2); PLT 420 X1000 (130-400); RBC 4.07 XMIL (4.7-6.1); RDW 12.8 % (11.5-14.5); WBC 10.57 X1000 (4.8-10.8)
[2019-08-20 07:22] LABS: AGAP 10; BUN 5 mg/dL (8-22); CALCIUM 8.9 mg/dL (8.8-10.2); CHLORIDE 104 mmol/L (98-107); COSMO 281; CREATININE 0.8 mg/dL (0.7-1.2); ESTIMATED GFR > 60; GLUCOSE 179 mg/dL (70-104); POTASSIUM 3.7 mmol/L (3.5-5.1); SODIUM 140 mmol/L (136-145); TCO2 26 mmol/L (25-35)
[2019-08-20 07:38] LABS: EOS 2 % (1-10); LYMPHS 20 % (21-51); MONO 10 % (1-9); SEGS 66 % (42-75)
[2019-08-20] MEDS ORDERED: LEVEMIR SUBQ SCH (09:00)
[2019-08-20] MEDS: COLACE PO SCH (09:45)
[2019-08-20] MEDS: VANCOMYCIN 2,000 MG in NS 500 ML IV SCH (09:47)
[2019-08-20] MEDS: PERIDEX MT SCH (09:48)
[2019-08-20] MEDS: MIRALAX PO SCH (09:48)
[2019-08-20] MEDS ORDERED: CLEOCIN PO SCH ×2 (19:36→20:00)
[2019-08-20 19:42] VITALS: BP 138/72
--- NOTE | 2019-08-20 22:50 | DISCHARGE SUMMARY ---
ADMISSION DATE: 08/14/2019 DISCHARGE DATE: 08/20/2019 DISCHARGE DISPOSITION: Home. DISCHARGE CONDITION: Hemodynamically stable. His right gluteal abscess has been draining. His culture results grew Streptococcus anginosus which is sensitive to clindamycin. He has been tolerating diet well. He was counseled about completing antibiotic course following with general surgeon. I explained to him about the natural history of disease of abscesses. I explained to him that drainage is required, as it would help decrease the size of the abscess. He understood it. His family is at bedside. All of the questions have been answered. DISCHARGE DIAGNOSES: 1. Sepsis due to right gluteal abscess. 2. Right gluteal abscess due to Streptococcus anginosus. 3. Diabetes mellitus. 4. Hypokalemia. OTHER DIAGNOSES: Active smoking for which he was counseled with return instructions at the time of discharge. DISCHARGE MEDICATIONS: 1. Clindamycin 300 mg every 6 hours, 30 capsules have been prescribed. 2. Hydrocodone/acetaminophen 7.5 mg 1 tablet every 8 hours as needed 15 tablets have been prescribed. 3. Dulaglutide 1.5 mg once a week. 4. Metformin 500 mg. PHYSICAL EXAMINATION: Vital Signs: At time of discharge, temperature 99.1 degrees, pulse 78, respiratory rate 17, blood pressure 139/73, saturating 98% room air. General: Not in acute distress. Mr. Rendon is denying any chest pain or shortness of breath. No pallor, cyanosis, clubbing, or icterus. Lungs: Air entry bilaterally equal. No wheezing or crackles. Cardiovascular: S1 normal. No murmur or gallop. Abdomen: Soft, nontender. He has a right gluteal abscess which has about a 3 x 3 cm opening towards the left which is draining pus-like material and tender. LABS: At the time of discharge, WBC 10,000, hemoglobin 11.8, platelet 420,000. BUN is 5, creatinine 0.8, blood glucose 160. Microbiology; culture from the right buttock is growing Streptococcus anginosus. IMAGING: During hospital admission, abdomen and pelvis CT on August 14 had a gluteal abscess with surrounding cellulitis on the right. Chest x-ray on August 15 had did not have any acute cardiopulmonary process. PROCEDURES: During hospital admission: On 08/16/2019 patient underwent incision and drainage of the gluteal abscess, which he tolerated well next. HOSPITAL COURSE SUMMARY: Mr. Rendon is a 34-year-old man who presented on 08/14/2019 with chief complaints of abscess which he had noticed 4 days ago. In the Urgent Care he was started on amoxicillin, but he has started experiencing increasing pain, which was not relieved on ibuprofen. He also had prior history of abscess, diabetes mellitus, and hyperlipidemia. In the emergency room, he was also noticed to have erythema around the abscess. On presentation, he was febrile with temperature of 102.6 degrees. He was tachycardic with pulse of 123 and he was having blood pressure of 113/70. His WBC was a positive for leukocytosis of 16,000. He was resuscitated with intravenous fluids and was started on broad-spectrum intravenous antibiotics including vancomycin and meropenem. The general surgical team was consulted. He underwent incision and debridement, incision and drainage on 08/16/2019, which he tolerated well. At the time of discharge, his culture results grew Streptococcus anginosus, so his intravenous antibiotics changed to clindamycin. He was discharged on oral clindamycin to have outpatient followup with general surgeon. TIME SPENT: There was 25 minutes spent discharging this patient and plan of care discussed with him. His questions have been answered. cc: Chetan Gupta MD
== END 2019-08-20 20:25 | disposition home or self-care (01) | DRG 872 ==
LOC: ED 17:58 → SUATTDRO 17:59 → 4N 22:43
PROVIDERS: ATTEND Internal Medicine